=== PATIENT | male | born 1995 | race African-American/Black ===

== ENCOUNTER 2019-05-26 14:54 | Emergency (ER) | payer SELFPAY ==
[~2019-05-26] VITALS: Ht 185.4 cm; Wt 79.0 kg
[2019-05-26] MEDS ORDERED: BACITRACIN 15GM TUBE TOP ONE (17:45)
[2019-05-26] MEDS ORDERED: KETOROLAC 30MG/ML VIAL IM ONE (17:45)
[2019-05-26 18:32] VITALS: BP 115/73
== END 2019-05-26 18:30 | disposition home or self-care (01) ==
LOC: ER 16:19
DX: S40.022A Contusion of left upper arm, initial encounter (principal); X58.XXXA Exposure to other specified factors, initial encounter; Y93.89 Activity, other specified; Y92.89 Other specified places as the place of occurrence of the external cause; Y99.8 Other external cause status
CPT/HCPCS: 73080; 73090; 96372; 99283; J1885